=== PATIENT | female | born 1985 | race Two or more races ===

== ENCOUNTER 2016-07-31 21:59 | Emergency (ER) | payer OTHER ==
[~2016-07-31] VITALS: Ht 160 cm; Wt 54.4 kg
[2016-07-31] MEDS ORDERED: IBUPROFEN600 MG ORAL (22:49)
[2016-07-31 22:51] VITALS: BP 151/97
[2016-07-31 22:56] VITALS: BP 151/97
--- NOTE | 2016-08-01 01:20 | Emergency Room Report ---
History of Present Illness General Chief Complaint: Pain Source: Patient Present Illness HPI 31-year-old female presents ED complaining of right wrist pain. States at work today a heavy box fell on her and landed on her right arm. Denies LOC. Denies any other injuries. Notes pain and bruising to her right wrist. Pain is throbbing, 7/10, nonradiating. worse with flexion and extension. No other aggravating or relieving factors. Denies any other associated symptoms Allergies: Coded Allergies: No Known Allergies (Unverified , 07/31/16) Patient History Past Medical History: none Past Surgical History: none Pertinent Family History: none Social History: Denies: alcohol use, drug use, smoking Now: No Immunizations: UTD Reviewed Nursing Documentation: PMH: Agreed, PSxH: Agreed Nursing Documentation-PMH Past Medical History: No Stated History Review of Systems All Other Systems: negative except mentioned in HPI Physical Exam Vital Signs Date Time Temp Pulse Resp B/P Pulse Ox O2 Delivery O2 Flow Rate FiO2 07/31/16 22:07 98.1 77 19 155/98 97 Room Air Sp02 EP Interpretation: reviewed, normal General Appearance: no apparent distress, alert, GCS 15, non-toxic Head: normocephalic Eyes: bilateral eye PERRL, bilateral eye normal inspection ENT: normal ENT inspection Neck: normal inspection Respiratory: normal inspection Cardiovascular #1: normal inspection Gastrointestinal: normal inspection Rectal: deferred Genitourinary: no CVA tenderness Musculoskeletal: tender - TTP R wrist Neurologic: alert, oriented x3, responsive, motor strength/tone normal, sensory intact, speech normal Psychiatric: normal inspection Skin: normal inspection Lymphatic: normal inspection Procedures Splinting Splinting : Consent: Verbal Pre-Made Type: LENCHO wrap - R wrist Pre-Proc Neuro Vasc Exam: normal Post-Proc Neuro Vasc Exam: normal Patient Tolerated: Well Complications: None Medical Decision Making Diagnostic Impression: Primary Impression: Wrist sprain Qualified Codes: S63.501A - Unspecified sprain of right wrist, initial encounter ER Course Hospital Course 31-year-old F presents to ED complaining of R wrist pain s/p injury at work Differential diagnoses include: Fracture, dislocation, sprain, contusion Clinical course Patient placed on stretcher. After initial history and physical, I ordered Xrays of R hand/wrist Xrays prelim read shows no acute fracture/dislocation. placed in lencho wrap Diagnosis - wrist sprain Stable and discharged to home with prescription for motrin. apply ice, keep elevated. weight bear as tolerated. Followup with PMD. Return to ED if symptoms recur or worsen Other X-Ray Diagnostic Results Other X-Ray Diagnostic Results : X-Ray Ordered: R hand, R wrist EP Interpretation: Yes Findings: no fractures, no dislocation, no soft tissue swelling Number of Views: 3 Other Impression Right hand-No fracture, no dislocation, no soft tissue swelling Right wrist-No fracture, no dislocation, no soft tissue swelling Last Vital Signs Date Time Temp Pulse Resp B/P Pulse Ox O2 Delivery O2 Flow Rate FiO2 07/31/16 22:56 98.2 79 21 151/97 98 Room Air Status: improved Disposition: HOME, SELF-CARE Condition: Stable Scripts Ibuprofen* (MOTRIN*) 600 Mg Tablet 600 MG ORAL Q8H Y for For Pain, #30 TAB 0 Refills Prov: AAKASH BILLINGSLEY M.D. 07/31/16 Referrals: NOT CHOSEN [facility]/,REFERRING (PCP) Departure Forms: Return to Work Return to Work Date: Aug 01, 2016 Work Restrictions: No Heavy Lifting Patient Instructions: Wrist Sprain With [facility] AAKASH BILLINGSLEY M.D. Aug 01, 2016 01:20
--- NOTE | 2016-08-01 12:06 | Diagnostic Imaging Report ---
History: Pain. Technique: Frontal, lateral, and oblique views of the right hand are provided. Comparison: No prior study is available for comparison. Findings: Overall bony mineralization is within normal limits. There is no evidence of acute fracture or dislocation. No significant erosive or arthritic change is noted. The soft tissues appear grossly normal. No significant joint effusion is noted. Impression: No evidence of acute fracture or dislocation.
--- NOTE | 2016-08-02 08:43 | Diagnostic Imaging Report ---
History: Pain. Technique: Frontal, lateral, and oblique views of the right wrist are provided. Comparison: No prior study is available for comparison. Findings: Overall bony mineralization is within normal limits. There is no evidence of acute fracture or dislocation. No significant erosive or arthritic change is noted. The soft tissues appear grossly normal. No significant joint effusion is noted. Impression: No evidence of acute fracture or dislocation.
== END 2016-07-31 23:18 | disposition home or self-care (01) ==
LOC: EMR 23:18
DX: S63.501A Unspecified sprain of right wrist, initial encounter (principal); W20.8XXA Other cause of strike by thrown, projected or falling object, initial encounter; Y93.9 Activity, unspecified; Y92.69 Other specified industrial and construction area as the place of occurrence of the external cause; Y99.9 Unspecified external cause status; M25.531 Pain in right wrist
CPT/HCPCS: 29260; 99283